=== PATIENT | female | born 2000 | race Caucasian/White ===

== ENCOUNTER 2020-02-22 16:05 | Emergency (ER) | payer BC ==
--- NOTE | 2020-02-22 16:54 | EDM.PDOC ---
ED HPI GENERAL MEDICAL PROBLEM - General Stated Complaint: SEVERE ABD PAIN Time Seen by Provider: 02/22/20 16:49 Source of Information: Reports: Patient, Family (mother is avaiable to help with patient's allergy list) History Limitations: Reports: No Limitations - History of Present Illness INITIAL COMMENTS - FREE TEXT/NARRATIVE: 19 year old female presents to [facility] for evaluation of acute onset of right upper and epigastric pain. Patient has had intermittent right upper abdominal pain for the last 2-3 months (after ear TM perforation repair surgery). Patient notes the pain occurs every few weeks after eating greasy food but symptoms usually resolve within 1-2 hours. Patient symptoms began today and have not resolved but became more severe. Pain is described as sharp with cramping noted. Patient had a firmer bowel movement today. Patient has noted slight dysuria symptoms. Duration: Minutes: Right Upper Anterior Abdominal Pain Score (Numeric/FACES): 9 - Related Data Allergies Allergy/AdvReac Type Severity Reaction Status Date / Time codeine Allergy Stomach Verified 02/22/20 17:00 Upset Home Meds: Home Meds Acetaminophen/oxyCODONE [Percocet 325-5 MG] 1 - 2 each PO Q6H PRN 5 Days #10 tab 02/22/20 [Rx] Acetaminophen/oxyCODONE [Percocet 325-5 MG] 1 - 2 each PO Q6H PRN 5 Days #6 tab 02/22/20 [Rx] Levothyroxine Sodium 88 mcg PO DAILY 02/22/20 [History] Omeprazole 20 mg PO BID #40 capsule. 02/22/20 [Rx] Ondansetron [Zofran ODT] 4 mg PO Q6H PRN 2 Days #10 tab.dis 02/22/20 [Rx] Sertraline HCl 100 mg PO DAILY 02/22/20 [History] ED ROS GENERAL - Review of Systems Review Of Systems: Comprehensive ROS is negative, except as noted in HPI. ED EXAM, GI/ABD - Physical Exam Exam: See Below Exam Limited By: No Limitations General Appearance: Alert, WD/WN, Moderate Distress (due to epigastric and RUQ abdominal pain) Ears: Normal External Exam, Hearing Grossly Normal Nose: Normal Inspection Throat/Mouth: Normal Inspection, Normal Voice, No Airway Compromise Head: Atraumatic, Normocephalic Neck: Normal Inspection, Supple, Full Range of Motion Respiratory/Chest: No Respiratory Distress Cardiovascular: Normal Peripheral Pulses, Regular Rate, Rhythm GI/Abdominal Exam: Tender (slight diffuse with moderate focal epigastric and right upper abdominal discomfort. Guarding noted over the RUQ.) Course - Vital Signs Last Recorded V/S: Last Vital Signs Temp 36.2 C 02/22/20 17:07 Pulse 82 02/22/20 17:07 Resp 17 02/22/20 17:07 BP 120/72 02/22/20 17:07 Pulse Ox 98 02/22/20 17:07 - Orders/Labs/Meds Orders: Active Orders 24 hr Category Date Time Status Peripheral IV Care [RC] . DIRECTED Care 02/22/20 17:03 Active Sodium Chloride 0.9% [Saline Flush] Med 02/22/20 17:02 Active 10 ml FLUSH ASDIRECTED PRN Peripheral IV Insertion Adult [OM.PC] Urgent Oth 02/22/20 17:03 Ordered Medication Orders Sodium Chloride (Saline Flush) 10 ml FLUSH ASDIRECTED PRN PRN Reason: Keep Vein Open Last Admin: 02/22/20 18:05 Dose: 10 ml Documented by: JOSE Labs: Laboratory Tests 02/22/20 02/22/20 02/22/20 Range/Units 17:05 17:16 17:16 WBC 12.6 H (4.5-11.0) K/uL RBC 4.62 (3.30-5.50) M/uL Hgb 13.4 (12.0-15.0) g/dL Hct 40.9 (36.0-48.0) % MCV 89 (80-98) fL MCH 29 (27-31) pg MCHC 33 (32-36) % Plt Count 290 (150-400) K/uL Neut % (Auto) 76 H (36-66) % Lymph % (Auto) 13 L (24-44) % [place] % (Auto) 10 H (2-6) % Eos % (Auto) 1 L (2-4) % Baso % (Auto) 0 (0-1) % Sodium 141 (140-148) mmol/L Potassium 3.8 (3.6-5.2) mmol/L Chloride 104 (100-108) mmol/L Carbon Dioxide 29 (21-32) mmol/L Anion Gap 7.9 (5.0-14.0) mmol/L BUN 13 (7-18) mg/dL Creatinine 1.0 (0.6-1.0) mg/dL Est Cr Clr Drug Dosing 67.15 mL/min Estimated GFR (MDRD) > 60 (>60) Glucose 99 (74-106) mg/dL Calcium 8.6 (8.5-10.1) mg/dL Total Bilirubin (0.2-1.0) mg/dL Direct Bilirubin (0.0-0.2) mg/dL Indirect Bilirubin AST (15-37) U/L ALT (12-78) U/L Alkaline Phosphatase (46-116) U/L C-Reactive Protein 0.25 (0.0-0.3) mg/dL Total Protein (6.4-8.2) g/dL Albumin (3.4-5.0) g/dL Globulin (2.3-3.5) g/dL Albumin/Globulin Ratio (1.2-2.2) Lipase 99 (73-393) U/L HCG, Qual Urine Color Yellow (YELLOW) Urine Appearance Clear (CLEAR) Urine pH 8.5 H (5.0-8.0) Ur Specific [place] 1.020 (1.008-1.030) Urine Protein Negative (NEGATIVE) mg/dL Urine Glucose (UA) Negative (NEGATIVE) mg/dL Urine Ketones Negative (NEGATIVE) mg/dL Urine Occult Blood Trace-intact H (NEGATIVE) Urine Nitrite Negative (NEGATIVE) Urine Bilirubin Negative (NEGATIVE) Urine Urobilinogen 0.2 (0.2-1.0) EU/dL Ur Leukocyte Esterase Negative (NEGATIVE) Urine RBC 0-5 (0-5) Urine WBC 0-5 (0-5) Ur Epithelial Cells Rare Amorphous Sediment Not seen Urine Bacteria Rare Urine Mucus Not seen 02/22/20 02/22/20 Range/Units 17:16 17:16 WBC (4.5-11.0) K/uL RBC (3.30-5.50) M/uL Hgb (12.0-15.0) g/dL Hct (36.0-48.0) % MCV (80-98) fL MCH (27-31) pg MCHC (32-36) % Plt Count (150-400) K/uL Neut % (Auto) (36-66) % Lymph % (Auto) (24-44) % [place] % (Auto) (2-6) % Eos % (Auto) (2-4) % Baso % (Auto) (0-1) % Sodium (140-148) mmol/L Potassium (3.6-5.2) mmol/L Chloride (100-108) mmol/L Carbon Dioxide (21-32) mmol/L Anion Gap (5.0-14.0) mmol/L BUN (7-18) mg/dL Creatinine (0.6-1.0) mg/dL Est Cr Clr Drug Dosing mL/min Estimated GFR (MDRD) (>60) Glucose (74-106) mg/dL Calcium (8.5-10.1) mg/dL Total Bilirubin 0.9 (0.2-1.0) mg/dL Direct Bilirubin 0.52 H (0.0-0.2) mg/dL Indirect Bilirubin 0.38 AST 346 H (15-37) U/L ALT 243 H (12-78) U/L Alkaline Phosphatase 137 H (46-116) U/L C-Reactive Protein (0.0-0.3) mg/dL Total Protein 7.5 (6.4-8.2) g/dL Albumin 4.3 (3.4-5.0) g/dL Globulin 3.2 (2.3-3.5) g/dL Albumin/Globulin Ratio 1.3 (1.2-2.2) Lipase (73-393) U/L HCG, Qual Negative Urine Color (YELLOW) Urine Appearance (CLEAR) Urine pH (5.0-8.0) Ur Specific [place] (1.008-1.030) Urine Protein (NEGATIVE) mg/dL Urine Glucose (UA) (NEGATIVE) mg/dL Urine Ketones (NEGATIVE) mg/dL Urine Occult Blood (NEGATIVE) Urine Nitrite (NEGATIVE) Urine Bilirubin (NEGATIVE) Urine Urobilinogen (0.2-1.0) EU/dL Ur Leukocyte Esterase (NEGATIVE) Urine RBC (0-5) Urine WBC (0-5) Ur Epithelial Cells Amorphous Sediment Urine Bacteria Urine Mucus Meds: Medications Generic Name Dose Route Start Last Admin Trade Name Freq PRN Reason Stop Dose Admin Sodium Chloride 10 ml 02/22/20 17:02 02/22/20 18:05 Saline Flush FLUSH 10 ml ASDIRECTED PRN Administration Keep Vein Open Discontinued Medications Generic Name Dose Route Start Last Admin Trade Name Trisha PRN Reason Stop Dose Admin Fentanyl 50 mcg 02/22/20 17:03 02/22/20 17:20 Sublimaze IVPUSH 02/22/20 17:04 50 mcg ONETIME ONE Administration Metoclopramide HCl 5 mg 02/22/20 17:03 02/22/20 17:25 Reglan IV 02/22/20 17:04 5 mg ONETIME ONE Administration - Re-Assessments/Exams Free Text/Narrative Re-Assessment/Exam: US tech updated me regarding wet read noting multiple small gallstone. No wall thickening. Common bile duct measurs1.3 cm normal negative Meraz's sign. Diagnosis biliary cholic with gallstones. I dd not believe patient need admission or urgent surgical interventions at this time. Close follow-up with PCP and referral to general surgeon is recommended. 02/22/20 19:24 Departure - Departure Time of Disposition: 19:36 Disposition: Home, Self-Care 01 Clinical Impression: Recurrent biliary colic, Elevated liver enzymes - Discharge Information Prescriptions: Omeprazole 20 mg PO BID #40 capsule.dr Acetaminophen/oxyCODONE [Percocet 325-5 MG] 1 - 2 each PO Q6H PRN 5 Days #6 tab PRN Reason: pain Acetaminophen/oxyCODONE [Percocet 325-5 MG] 1 - 2 each PO Q6H PRN 5 Days #10 tab PRN Reason: pain Ondansetron [Zofran ODT] 4 mg PO Q6H PRN 2 Days #10 tab.dis PRN Reason: Vomiting Instructions: Biliary Colic, Adult Referrals: PCP,None [Primary Care Provider] - Forms: ED Department Discharge Additional Instructions: GALL STONES 1. Clear Liquid Diet x 48 hours then to bland advance as tolerated. Zofran 4 mg ODT per nausea to prevent vomiting #5 INSTYMED and #10 2. Prilosec 20mg daily to decreased stomach acid and allow stomach to heal. 3. Narcotic pain medications as directed for moderate to severe pain as needed.Percocet #6 INSTYMED and #10 prescrption 4. Call PCP and General Surgeon to set up outpatient evaluation for gallstones. 5. You may need further evaluation with a General Surgeon for possible removal of gallbladder if continue pain and concerns. 6. Return for repeat evaluation if increase, changes, new or worsen symptoms. 7. Gallstone may progress to an infection of the gallbladder or a stone to become lodged in the common bile duct which may require more emergent intervention. Discharge Instructions Biliary Colic You have been seen today for biliary colic. Biliary colic is the pain that happens when gallstones block the normal flow of bile from the gallbladder. It usually is a steady or crampy pain in the upper abdomen (belly), most often under the right side of the rib cage where the gallbladder is. Sometimes you get pain from the gallbladder in your back or shoulder. It is common to have nausea (sick to stomach) and vomiting (throwing up) with biliary colic. Bile is a liquid the body makes to help with digesting fat. It is made by the liver and stored in the gallbladder and released from the gall bladder when you eat fatty foods. Gallstones can form for a variety of reasons. Risk factors for gallstones include being female, having a family history of gallstones, being older, being or having been , having diabetes, having rapid weight loss, and others. Once gallstones form, surgeons usually tell you to have your gallbladder removed. There is medicine that can dissolve gallstones, but it can be unpleasant to take, and gallstones tend to come back when you quit taking the medicine. Your regular provider can help decide on the right treatment for you, and may refer you to a surgeon to discuss whether surgery is right in your case. Complications of gallstones include infection, jaundice, inflammation of the pancreas, and rupture of the gallbladder. One of these complications will happen to about one out of every four patients with gallstones over the next 10-20 years if they are not treated. Please follow-up as instructed by your provider today. Return to the clinic or Local Emergency Department if you develop: Fever greater than 100.5F. Persistent nausea and vomiting. Pain that will not go away with the medicines you were given here. Yellow skin or eye color (jaundice). Other new concerning symptoms. What can I do to help myself? Eat regular meals at least three times a day, to make the gallbladder empty before it gets too full. Avoid fried or fatty foods. Drink plenty of clear fluids. Take [id number] or prescribed pain medications as recommended by your provider. If you were given a prescription for medicine here today, be sure toread all of the information (including the package insert) that comes with your prescription. This will include important information about the medicine, its side effects, and any warnings that you need to know about. The pharmacist who fills the prescription can provide more information and answer questions you may have about the medicine. If you have questions or concerns that the pharmacist cannot address, please call or return to the Emergency Department. Remember that you can always come back to the clinic or go to Local Emergency Department if you are not able to see your regular provider in the amount of time listed above, if you get any new symptoms, or if there is anything that worries you. Sepsis Event Note (ED) - Focused Exam Vital Signs: Vital Signs Temp Pulse Resp BP Pulse Ox 02/22/20 17:07 36.2 C 82 17 120/72 98 02/22/20 16:24 36.2 C 82 17 120/72 98 - My Orders Last 24 Hours: My Active Orders 02/22/20 17:02 Sodium Chloride 0.9% [Saline Flush] 10 ml FLUSH ASDIRECTED PRN 02/22/20 17:03 Peripheral IV Care [RC] . DIRECTED Peripheral IV Insertion Adult [OM.PC] Urgent - Assessment/Plan Last 24 Hours: My Active Orders 02/22/20 17:02 Sodium Chloride 0.9% [Saline Flush] 10 ml FLUSH ASDIRECTED PRN 02/22/20 17:03 Peripheral IV Care [RC] . DIRECTED Peripheral IV Insertion Adult [OM.PC] Urgent
[2020-02-22] MEDS ORDERED: Sodium Chloride 0.9% 10 ML Syringe FLUSH PRN (17:02)
[2020-02-22] MEDS ORDERED: fentaNYL 100 MCG/2 ML SDV IVPUSH ONE (17:03)
[2020-02-22] MEDS ORDERED: Metoclopramide 10 MG/2 ML SDV IV ONE (17:03)
--- NOTE | 2020-02-22 19:11 | CRLUS ---
INDICATION: Right upper quadrant abdominal pain TECHNIQUE: Ultrasound abdomen limited. Sonographic images of the right upper quadrant were obtained using doyle-scale and color Doppler images. COMPARISON: None FINDINGS: Liver: The liver parenchyma is normal in echotexture. Gallbladder: Multiple tiny echogenic gallstones are seen the gallbladder neck. The gallbladder wall is normal in appearance. No pericholecystic fluid is present. No sonographic Loving sign is present. Common bile duct: 3 mm. No intrahepatic biliary ductal dilatation seen. Pancreas: The visualized portions of the pancreatic head and body are normal in appearance. Right Kidney: 8.6 cm. No hydronephrosis or ureterectasis is seen. Vascular: Proximal abdominal aorta and IVC are not demonstrated. IMPRESSION: 1. Multiple tiny echogenic gallstones are seen the gallbladder neck. Dictated by Allen Pond MD @ 02/22/2020 7:04:13 PM Dictated by: Allen Pond MD @ 02/22/2020 19:09:02 (Electronically Signed)
== END 2020-02-22 20:01 | disposition home or self-care (01) ==
LOC: JP.ED 16:05
DX: K80.70 Calculus of gallbladder and bile duct without cholecystitis without obstruction (principal); R79.89 Other specified abnormal findings of blood chemistry; Z88.5 Allergy status to narcotic agent; Z79.899 Other long term (current) drug therapy
CPT/HCPCS: 36415; 76705; 80048; 80076; 81001; 83690; 84703; 85025; 86140; 96374; 96375; 99284; J2765; J3010; 99283